=== PATIENT | female | born 1960 | race Caucasian/White ===

== ENCOUNTER → 2025-03-23 13:49 | Outpatient (REF) | payer OTHER, MEDICARE, SELFPAY | LOC: RAD 13:49 | PROVIDERS: ATTENDING PHYSICIAN Podiatrist Foot Surgery; FAMILY PHYSICIAN Student in an Organized Health Care Education/Training Program | DX: M95.9 Acquired deformity of musculoskeletal system, unspecified (principal) | CPT/HCPCS: 77080 ==